=== PATIENT | female | born 1975 | race Caucasian/White ===

== ENCOUNTER → 2017-07-11 | Outpatient (CLI) | payer OTHER ==
--- NOTE | 2017-07-12 09:05 | RSPPFT ---
DATE OF PROCEDURE: 07/11/17 COMMENTS: Spirometry shows FVC of 3.4 at 101% of predicted, FEV1 of 3.0 at 109%, FEV1/FVC ratio is normal. Flow is normal at FEF 25, FEF 50, FEF 75 and FEF 25-75. There is a good response after bronchodilator treatment. Lung volumes show residual volume is increased. TLC is normal. Diffusion capacity is normal. Flow volume loop indicates a normal pattern. IMPRESSION: 1. Normal spirometry. 2. Good response after bronchodilator treatment. 3. Normal lung volumes. 4. Normal diffusion capacity.
== END ==
LOC: HRSP 12:11
PROVIDERS: ATTEND Specialist
DX: R05 Cough (principal)
CPT/HCPCS: 94060; 94726; 94729

== ENCOUNTER → 2017-08-05 | Day surgery (SDC) | payer OTHER ==
[~2017-08-05] MED LIST: BUPIVACAINE/EPINEPHRINE 0.5% PF 10 ML VIAL ONE; EPINEPHrine HCL (1:1000) 1 MG/ML VIAL OTHER ONE; KETOROLAC TROMETHAMINE 30 MG/ML (IVP) VIAL IV PUSH ONE; LACTATED RINGER'S 1000 ML INJ 1,000 ML ONE; MIDAZOLAM HCL 2 MG/2 ML VIAL ONE; ONDANSETRON HCL 4 MG/2 ML VIAL IV PUSH ONE; PROPOFOL 200 MG/20 ML AMP IV ONE; TRIAMCINOLONE ACETONIDE 40 MG/ML VIAL ONE; ceFAZolin INJ 1,000 MG VIAL ONE
--- NOTE | 2017-08-05 08:17 | TN ---
cc: Leander Mccoy MD DATE OF SURGERY: 08/05/2017 PREOPERATIVE DIAGNOSIS: Right knee medial meniscal tear. POSTOPERATIVE DIAGNOSIS: Right knee medial meniscal tear. PROCEDURE PERFORMED: Right knee arthroscopy with partial medial meniscectomy. SURGEON: Leander Mccoy MD LOSS PREVENTION LEAD: RAI Keating The surgical procedure was assisted by my Advanced Registered Nurse Practitioner. My CERTIFIED REAL ESTATE APPRAISER presence was necessary throughout this case for the manipulation and positioning of the surgical extremity. My CERTIFIED REAL ESTATE APPRAISER was assisting me throughout the duration of this procedure. The skill set of an Advanced Registered Nurse Practitioner was medically necessary to complete this procedure. During the surgical case, the surgical scrub technologist was working at the back table and the Advanced Registered Nurse Practitioner was directly assisting me. ANESTHESIA: General anesthesia. PROCEDURE: The patient was brought to the operative theater. General anesthesia was administered. She was placed in a supine position with the leg in the leg ruiz. A tourniquet was not used during the case. The right lower extremity was prepped and draped in the usual sterile fashion. I made a standard incision laterally, followed by inferomedial incision under spinal needle visualization. The suprapatellar pouch had minimal synovitis. Patellofemoral joint was unremarkable. No chondromalacia. Medial compartment had no significant chondromalacia. We identified that there was a complex tear of the medial meniscus, which encompassed the entire posterior horn, which then went into a portion of the body itself. We started with a meniscal shaver. Identified that the cleavage was a very deep and jagged. We used a combination of meniscal shaver and biter back and forth until we got rid of the unstable segments. Both the superior and inferior leaflets needed to be resected due to degenerative nature of this. We took it back almost to the meniscal capsular junction at one point. We smoothed down the edges. Overall, we removed approximately 35% of the meniscus. We probed this and it was stable. Cartilage was protected. The anterior cruciate ligament was found to be intact. Lateral compartment was free of chondromalacia with no meniscal tear noted. There were no loose bodies in the gutters. We extravasated the fluid, gave an intraarticular injection with 0.25% Marcaine, followed by 40 mg of Kenalog. Arthroscopic portals were closed with 2-0 Vicryl and 3-0 nylon. The leg was dressed. The postoperative plan is weight bear as tolerated and early range of motion. MD TAVON Bullock/GRAEME , 08:03 AM , 08:15 AM
== END | disposition home or self-care (01) ==
LOC: ESDC 06:21
PROVIDERS: ATTEND Orthopaedic Surgery
DX: S83.231A Complex tear of medial meniscus, current injury, right knee, initial encounter (principal)
CPT/HCPCS: 01400; 29881; J0690; J1885; J2250; J2405; J3010; J3301; J7120; J0171